=== PATIENT | male | born 1955 | race Caucasian/White ===

== ENCOUNTER 2023-11-14 20:19 | Emergency (ER) | payer OTHER, BC ==
[~2023-11-14] VITALS: Ht 177.8 cm; Wt 82.1 kg
[2023-11-14 20:28] VITALS: BP_SYST 122; PULSE 84; RESP 18; TEMP 96.7; O2SAT 98
[2023-11-14 20:50] VITALS: BP_SYST 110; PULSE 76; RESP 19; TEMP 98.6; O2SAT 98
== END 2023-11-14 23:38 | disposition home or self-care (01) ==
LOC: SED 20:19
DX: M96.831 Postprocedural hemorrhage of a musculoskeletal structure following other procedure (principal); Z48.00 Encounter for change or removal of nonsurgical wound dressing; E11.9 Type 2 diabetes mellitus without complications; I10 Essential (primary) hypertension
CPT/HCPCS: 99282